=== PATIENT | female | born 1940 | race Caucasian/White ===

== ENCOUNTER → 2017-12-24 | Outpatient (CLI) | payer MEDICARE, OTHER ==
[~2017-12-24] MED LIST: ESOM20
== END ==
LOC: LAB SHORT 18:11 → LAB 18:11
DX: N39.0 Urinary tract infection, site not specified (principal); R30.0 Dysuria
CPT/HCPCS: 87086

== ENCOUNTER → 2020-06-23 | Outpatient (CLI) | payer MEDICARE, OTHER | END | disposition home or self-care (01) | LOC: LAB 13:37 → LAB SHORT 13:37 | DX: R35.1 Nocturia (principal) | CPT/HCPCS: 87077; 87086; 87186 ==

== ENCOUNTER → 2020-07-05 | Outpatient (CLI) | payer MEDICARE, OTHER | END | disposition home or self-care (01) | LOC: LAB 17:55 → LAB SHORT 17:55 | DX: N39.0 Urinary tract infection, site not specified (principal) | CPT/HCPCS: 87077; 87086; 87186 ==

== ENCOUNTER → 2020-10-14 | Outpatient (CLI) | payer MEDICARE, OTHER | END | disposition home or self-care (01) | LOC: PLD 11:11 → LAB SHORT 11:11 | DX: L08.0 Pyoderma (principal) | CPT/HCPCS: 87070; 87077; 87147; 87186; 87205 ==

== ENCOUNTER → 2020-10-29 | Outpatient (CLI) | payer MEDICARE, OTHER | END | disposition home or self-care (01) | LOC: LAB SHORT 13:00 → LAB 13:00 | DX: N39.0 Urinary tract infection, site not specified (principal) | CPT/HCPCS: 87077; 87086; 87186 ==

== ENCOUNTER → 2021-01-07 | Outpatient (CLI) | payer MEDICARE, OTHER | LOC: LAB 11:28 → LAB SHORT 11:28 | DX: R30.0 Dysuria (principal) | CPT/HCPCS: 87077; 87086; 87186 ==

== ENCOUNTER → 2021-01-29 | Outpatient (CLI) | payer MEDICARE, OTHER | LOC: LAB SHORT 13:30 → LAB 13:30 | DX: R30.0 Dysuria (principal); Z88.5 Allergy status to narcotic agent; Z88.1 Allergy status to other antibiotic agents | CPT/HCPCS: 87086 ==

== ENCOUNTER → 2021-06-17 | Outpatient (CLI) | payer MEDICARE, OTHER | END | disposition home or self-care (01) | LOC: LAB SHORT 16:30 → LAB 16:30 | DX: R30.0 Dysuria (principal) | CPT/HCPCS: 87086 ==

== ENCOUNTER → 2021-08-25 | Outpatient (CLI) | payer MEDICARE, OTHER | LOC: LAB SHORT 18:59 | DX: R30.0 Dysuria (principal) | CPT/HCPCS: 87077; 87086; 87186 ==

== ENCOUNTER 2021-09-23 10:17 | Day surgery (SDC) | payer MEDICARE, OTHER ==
--- NOTE | 2021-09-23 11:00 | NUR ---
PT DENIES ANY HOME MEDS
[2021-09-23 11:49] LABS: Albumin, Blood 3.9 g/dL (3.4-5.0); Anion Gap 7 mmol/L (6-16); Blood Urea Nitrogen 20 mg/dL (8-24); Bun/Creatinine Ratio 26.1 (12.0-20.0); CO2, Blood 26 mmol/L (21-32); Calcium, Blood 8.9 mg/dL (8.5-10.1); Chloride, Blood 106 mmol/L (98-108); Creatinine, Blood 0.77 mg/dL (0.40-1.00); Glomerular Filtration Rate >60 (60-); Glucose, Blood 97 mg/dL (70-99); Phosphorus, Blood 3.4 mg/dL (2.5-4.9); Potassium, Blood 4.1 mmol/L (3.5-5.5); Sodium, Blood 139 mmol/L (136-145)
== END 2021-09-23 11:20 | disposition home or self-care (01) ==
LOC: ATC 10:17
PROVIDERS: Internal Medicine Nephrology
DX: N39.0 Urinary tract infection, site not specified (principal)
CPT/HCPCS: 80069; 85018; J0696

== ENCOUNTER → 2022-01-03 | Outpatient (CLI) | payer MEDICARE, OTHER | END | disposition home or self-care (01) | LOC: LAB 12:10 → PLD 12:10 → LAB SHORT 12:10 | DX: L90.5 Scar conditions and fibrosis of skin (principal) | CPT/HCPCS: 88305 ==

== ENCOUNTER → 2022-04-11 | Outpatient (CLI) | payer MEDICARE, OTHER ==
[2022-04-11 12:11] LABS: Source, Urine Clean Catch
[2022-04-11 13:29] LABS: Appearance, Urine Hazy (Clear); Bilirubin, Urine Neg (Neg); Blood, Urine Neg (Neg); Color, Urine Yellow (P-Yellow); Glucose Qualitative, Urine Neg (Neg); Ketones, Urine Neg (Neg); Leukocyte Esterase, Urine 3+ (Neg); Nitrite, Urine Pos (Neg); Protein, Urine Neg (Neg); Urobilinogen, Urine NORM (Normal)
[2022-04-11 13:44] LABS: White Blood Cells, Urine TNTC /hpf (0-5)
[2022-04-11 13:45] LABS: Bacteria Many /hpf; Red Blood Cells, Urine 0-2 /hpf (0-2); Squamous Epithelial Cells Few /hpf (Few)
== END | disposition home or self-care (01) ==
LOC: LAB SHORT 12:08 → LAB 12:08
PROVIDERS: Obstetrics & Gynecology
DX: R30.9 Painful micturition, unspecified (principal)
CPT/HCPCS: 81001

== ENCOUNTER → 2022-05-16 | Outpatient (CLI) | payer MEDICARE, OTHER | LOC: LAB SHORT 12:00 | DX: N39.0 Urinary tract infection, site not specified (principal) ==

== ENCOUNTER → 2022-06-02 | Outpatient (CLI) | payer MEDICARE, OTHER ==
[2022-06-03 13:49] LABS: Candida species (DNA Probe) Negative (NEGATIVE); G. vaginalis (DNA Probe) Negative (NEGATIVE); T. vaginalis (DNA Probe) Negative (NEGATIVE)
== END ==
LOC: LAB SHORT 15:13 → LAB 15:13
PROVIDERS: Family Medicine
DX: N89.8 Other specified noninflammatory disorders of vagina (principal)
CPT/HCPCS: 87480; 87510; 87660

== ENCOUNTER → 2023-01-02 | Outpatient (CLI) | payer MEDICARE, OTHER | END | disposition home or self-care (01) | LOC: LAB SHORT 12:32 → PLD 12:32 | DX: L57.8 Other skin changes due to chronic exposure to nonionizing radiation (principal); B88.0 Other acariasis; L73.9 Follicular disorder, unspecified | CPT/HCPCS: 88305; 88312 ==

== ENCOUNTER → 2024-07-25 | Outpatient (CLI) | payer MEDICARE, OTHER ==
[2024-07-26 09:04] LABS: Bacterial Vaginosis PCR Negative (NEGATIVE); Candida Group, PCR NOT DETECTED (NOT DETECT); Candida glabrata-krusei, PCR NOT DETECTED (NOT DETECT)
== END | disposition home or self-care (01) ==
LOC: LAB SHORT 14:20 → LAB 14:20
PROVIDERS: Family Medicine
DX: R39.9 Unspecified symptoms and signs involving the genitourinary system (principal)
CPT/HCPCS: 87481; 87661; 87801

== ENCOUNTER → 2025-01-20 | Outpatient (CLI) | payer MEDICARE, OTHER | END | disposition home or self-care (01) | LOC: LAB 13:20 → LAB SHORT 13:20 | DX: R39.9 Unspecified symptoms and signs involving the genitourinary system (principal) | CPT/HCPCS: 87077; 87086; 87186 ==

== ENCOUNTER → 2025-04-06 | Outpatient (CLI) | payer MEDICARE, OTHER | LOC: LAB SHORT 18:23 → LAB 18:23 | DX: R30.0 Dysuria (principal); Z78.9 Other specified health status | CPT/HCPCS: 87077; 87086; 87186 ==

== ENCOUNTER → 2025-07-24 | Outpatient (CLI) | payer MEDICARE, OTHER | LOC: LAB SHORT 16:27 → LAB 16:27 | DX: R39.9 Unspecified symptoms and signs involving the genitourinary system (principal) | CPT/HCPCS: 87077; 87086; 87186 ==